=== PATIENT | male | born 1965 | race Caucasian/White ===

== ENCOUNTER → 2023-11-08 14:20 | Outpatient (REF) | payer OTHER, SELFPAY | LOC: RAD 14:20 | PROVIDERS: ATTENDING PHYSICIAN Internal Medicine | DX: I82.409 Acute embolism and thrombosis of unspecified deep veins of unspecified lower extremity (principal) | CPT/HCPCS: 93925 ==

== ENCOUNTER 2024-07-09 23:55 | Observation (INO) | payer OTHER, SELFPAY ==
[2024-07-09 20:01] VITALS: BMI 31.5
[2024-07-09 20:08] LABS: Glucose - Point of Care 154 mg/dl (70-99)
[2024-07-09 20:13] VITALS: BP 121/82
--- NOTE | 2024-07-09 20:13 | ED.GENMED ---
History of Present Illness
General
Chief Complaint: Change in Mental Status
Source: patient
Exam Limitations: none
Time Seen by Provider: 07/09/24 20:06
Nursing documentation reviewed up to this point in time: agreed with
History of Present Illness
History of Present Illness:
Patient presents to ED secondary to mental status change along with generalized weakness noted by nursing staff, shortly prior to arrival. Approximate 4 hours prior, patient was noted to have gone downstairs to receive his medications. Staff
alerted by patient himself shortly prior to arrival, requesting assistance due to weakness. When paramedics arrived at scene, patient appears to be somnolent but arousable, and slow to respond to any commands. No focal deficit noted. Upon
arrival, patient is found to be somnolent but arousable. Patient has no complaints, but remains slow to respond.
Past History
Past History
ED Past Medical History: Hypercholesterolemia, NIDDM, Seizures, Psychiatric (Schizophrenia, Depression) and Other (Organic Brain Syndrome, )
ED Past Surgical History: None
Social History
Tobacco: Smoker
Alcohol: None
Personal: Single
[facility]
Review of Systems
Review of Systems
Allergies reviewed?: Yes
Unable to obtain full review of systems at this time due to: due to acuity
All Other Systems: Not applicable
Phy Exam
Physical Exam
Physical Exam:
Physical Exam
General: mild distress, not acutely ill. afebrile
Head: nc/at. eomi
Neck: supple. normal range of motion.
Heart: s1/s2 regular rate and rhythm, no murmur. equal radial pulses.
Lungs: no acute respiratory distress. clear bilaterally
Abdomen: normal bowel sounds. not tender.
Neuro: somnolent but easily arousable. no focal neurological deficits
Skin: no rash
Extremities: no edema. no calf tenderness.
Course
Orders/Labs/Results
Orders:
Orders
07/09/24 20:07
Electrocardiogram (*1) Stat
Reason for Study: Other
Other Reason for Exam: neuro symptoms
CT Head W/o Iv Contrast Urgent
Comment:
Reason For Exam: mental status change
EKG- Treatment ONCE
07/09/24 20:11
Complete Blood Count/With Diff Urgent
Comprehensive Metabolic Panel Urgent
Troponin I Urgent
07/09/24 20:18
Add On- LAB Urgent
Tests Added?: valproic acid level
07/09/24 20:29
Arterial Blood Gas Urgent
%Oxygen/Room Air: 90
07/09/24 20:43
Depakane Urgent
07/09/24 22:01
Drug Screen, Urine [Urine Drug Abuse Screen] Urgent
Date Specimen was Collected: 07/09/24
Time Specimen was Collected: 22:00
Urinalysis Urgent
Date Specimen was Collected: 07/09/24
Time Specimen was Collected: 22:00
Urine Microscopic Urgent
Date Specimen was Collected: 07/09/24
Time Specimen was Collected: 22:00
07/09/24 22:55
Add On- LAB Urgent
Tests Added?: Urinalysis
07/09/24 23:30
COVID-19 Antigen Urgent
Source: Nasal Swab
Influenza A+B Rapid Molecular Urgent
TOMASZ Source: Nasal Swab
Specimen Description:
07/09/24 23:48
Admit/Transfer Patient As Directed
Co-Sign Provider:
Level of Care: Observation services
Assign to:: Telemetry
Physician / Group: saranya isaac
Diagnosis: Somnolence likely secondary to possible accidental medication ingestion
Reason for Telemetry: Arrhythmia
Date to Stop Telemetry: 07/12/24
Time to Stop Telemetry: 11:00
Reason for Hospitalization: Somnolence likely secondary to possible accidental medication ingestion
Code Status As Directed
Resuscitation Status: Full Code
07/09/24 23:54
PRN Pain Medication Management As Directed
May give lesser potent ordered pain med per pt: Yes
preference::
Protocol:: Medication orders for pain may be administered in a
manner that supports deferring to patient preference
when the pt is:
- Requesting an ordered lesser potent pain medication.
Least to most potent pain medications are defined
as: acetaminophen < NSAID < tramadol < opioids
(morphine, oxycodone, hydromorphone).
- Requesting a lesser dose of the same medication IF
ORDERED.
- Requesting a less intrusive route of administration
if both routes are prescribed by the provider (PO <
IV).
07/10/24 02:21
0.9% Sodium Chloride 1000 ml [Nss] 1,000 ml IV 80 mls/hr
Acetaminophen [Tylenol] 650 mg PO Q4H PRN
07/10/24 02:21
Activity As Directed
Activity Level: With Assistance
Intake/ Output As Directed
Frequency: Per unit guidelines
Neurological Checks As Directed
Frequency: q4h
Pneumatic Compression Sleeves As Directed
Type: Knee high
Vital Signs As Directed
Frequency: Per unit guidelines
Pulse Ox/spot Check [RESP] Routine
Quantity: 1
Ot Eval And Treat Routine
Pt Eval And Treat Routine
Activity Level: As Tolerated
DX Deep Vein Thrombosis Video Routine
07/10/24 Breakfast
1800 calorie (15 carb) Diabetic
Complete Blood Count/With Diff IN AM
Comprehensive Metabolic Panel IN AM
Magnesium IN AM
Multivitamin [Theragran] 1 tablet PO DAILY@0600
07/10/24 08:00
Atorvastatin [Lipitor] 40 mg PO DAILY
Cyanocobalamin [Vitamin B-12] 1,000 mcg PO DAILY
Docusate Sodium [Colace] 200 mg PO BID
Ferrous Sulfate [Feosol] 325 mg PO DAILY
Gemfibrozil [Lopid] 600 mg PO BID
METFORMIN HCl [Glucophage] 1,000 mg PO BID
Pantoprazole [Protonix] 40 mg PO DAILY
Propranolol [Inderal] 60 mg PO BID
07/10/24 22:00
Oxybutynin Chloride [Ditropan] 5 mg PO HS
clozapine 400 mg PO HS
07/12/24 11:00
DC Protocol for Telemetry ONCE
Abnormal Lab Results
07/09/24 07/09/24 07/09/24
20:06 20:11 20:29
RBC 4.37 L 10^6/uL
(4.70-6.10)
Hgb 12.8 L g/dL
(13.0-18.0)
Hct 37.6 L %
(39.0-52.0)
Immature Gran % 0.6 H %
(0-0.5)
Neutrophils % 40.0 L %
(42.2-75.2)
pO2 73 L mmHg
(83-108)
Glucose 156 H mg/dl
(70-99)
Urine Ketones
Urine Bacteria
Urine Albumin
Ur Tricyclics Screen
POC Glucose 154 H mg/dl
(70-99)
07/09/24
22:01
RBC
Hgb
Hct
Immature Gran %
Neutrophils %
pO2
Glucose
Urine Ketones 1+ A
(Negative)
Urine Bacteria Few A
(Negative)
Urine Albumin 2+ A
(Neg - Trace)
Ur Tricyclics Screen Positive H
(Negative)
POC Glucose
07/09/24 20:11
07/09/24 20:11
Vital Signs
Initial and Last Documented VS:
Initial Vital Signs
Pulse Resp Pulse Ox
88 11 97
07/09/24 20:08 07/09/24 20:08 07/09/24 20:08
Last Documented Vital Signs
Temp Pulse Resp BP Pulse Ox
98.7 F 95 14 109/74 93
07/09/24 20:13 07/10/24 02:30 07/10/24 02:00 07/10/24 02:00 07/10/24 02:30
MDM/Problems Addressed
MDM/Problems Addressed:
CT head: No acute findings.
Patient remains somnolent, but arousable and appropriate answering simple questions. Generalized weakness noted on exam, but nothing focal. Symptoms possibly medication effect versus postictal state, less likely CVA.
Patient will be admitted for further evaluation and treatment.
*EKG
Interpreted by ED Provider?: Yes
EKG Intrepretation Date: 07/09/24
Heart Rate: 84
Rate: normal
Rhythm: sinus
[place]: normal axis
Interval: normal interval
*Critical Care Note
Total Time (30-74mins, 75-104mins- exclusive of procedures): Not Applicable
ED Attending Note
-
Portions of this chart may have been created with voice recognition software.� Occasional wrong word or��sound alike� substitutions may have occurred due to the inherent limitations of voice recognition software.
Discharge Plan
Departure
Patient Disposition: Admit
Date of Disposition: 07/09/24
Time of Disposition: 21:36
Admit to: Telemetry
Presentation/result/management discussed w/ accepting MD/DO: Hospitalist
Discharge Problem:
Altered mental status
Interventions
Interventions:
ED- Neurological Assessment Last Done: 07/09/24 21:36
ED Swallowing Screen Last Done: 07/09/24 21:36
[2024-07-09 20:20] LABS: % Basophils 0.4 % (0-2); % Eosinophils 1.8 % (0-6); % Immature Granulocytes 0.6 % (0-0.5); % Monocytes 8.2 % (1.7-9.3); Absolute Eosinophils 0.1 10^3/uL (0-0.7); Absolute Lymphocytes 3.3 10^3/uL (1.2-3.4); Absolute Monocytes 0.6 10^3/uL (0.1-0.6); Absolute Neutrophils 2.7 10^3/uL (1.4-6.5); Hematocrit 37.6 % (39.0-52.0); Hemoglobin 12.8 g/dL (13.0-18.0); Mean Corpuscular Hgb 29.3 pg (27.0-31.0); Mean Platelet Volume 9.7 fL (7.4-10.4); Nucleated Red Blood Cells % 0 % (-); Platelet Count 228 10^3/uL (130-400); Red Blood Cell Count 4.37 10^6/uL (4.70-6.10); Red Cell Dist. Width 13.1 % (11.5-14.5); White Blood Cell Count 6.8 10^3/uL (4.8-10.8)
[2024-07-09 20:35] LABS: B.E. -0.2 mmol/L; HCO3 24.8 mmol/L (21-28); O2 Saturation % 96.6 % (94-98); PCO2 41 mmHg (35-48); PO2 73 mmHg (83-108); pH 7.39 (7.35-7.45)
[2024-07-09 20:39] LABS: ALT (SGPT) 12 U/L (0-50); AST (SGOT) 17 U/L (17-59); Albumin 4.4 g/dl (3.5-5.0); Alkaline Phosphatase 71 U/L (38-126); Blood Urea Nitrogen 16 mg/dl (9-20); Calcium 9.1 mg/dl (8.4-10.2); Carbon Dioxide 23 mmol/L (22-30); Chloride 101 mmol/L (98-107); Glucose 156 mg/dl (70-99); Potassium 4.5 mmol/L (3.5-5.1); Sodium 136 mmol/L (135-145); Total Bilirubin 0.6 mg/dl (0.2-1.3); Total Protein 6.6 g/dl (6.3-8.2); eGFR > 60.00
[2024-07-09 20:42] LABS: Troponin I < 0.012 ng/ml
[2024-07-09 21:09] LABS: Depakane 60.5 ug/ml (50.0-120.0)
[2024-07-09 21:11] VITALS: BP 107/71
[2024-07-09 22:00] VITALS: BP 134/87
[2024-07-09 22:21] LABS: Amphetamines Negative (Negative); Barbiturates Negative (Negative); Benzodiazepines Negative (Negative); Buprenorphine Negative (Negative); Cocaine Negative (Negative); Marijuana Negative (Negative); Methadone Negative (Negative); Methamphetamines Negative (Negative); Opiates Negative (Negative); Phencyclidine Negative (Negative); Tricyclic Antidepressants Positive (Negative)
--- NOTE | 2024-07-09 22:45 | HPS.HSE ---
Addendum entered and electronically signed by Catrina Griffiths DO 07/10/24 00:37:
The patient is seen and examined. See below HPI:
VSS, AF
The patient is somnolent, but arousable to voice and can follow commands, then goes back to sleep. No focal deficits
Lungs CTA b/l no w/r/r, CV RRR, No m/r/g, Abd soft, nt/nd
I have reviewed the patient with TELECOMMUNICATIONS OFFICER, Tammy, and agree with her history and physical, assessment and plan of care as per below.
Consider Neuro Cx in morning if no improvement in mentation.
Original Note:
Family Physician
-
Family Physician: EVANGELISTA SANCHEZ MD
Chief Complaint
-
Somnolent
History of Present Illness
59-year-old male from [facility] [place], where he lives there and assisted living it was reported he was normal before receiving all of his p.m. medications around 5:30 PM. He then called down to the nursing staff approximately 1 hour
later stating he was very tired. He currently is very somnolent, snoring he does wake up when name is called and does answer questions appropriately but has difficulty staying awake. His speech when awake is difficult to understand somewhat
mumbled however when asked to speak louder and slower I am able to understand him. He denies current headache, fever, chills, chest pain, palpitations, shortness of breath, cough, abdominal pain, nausea, vomiting, diarrhea, urinary symptoms. He
states he feels like when he had prior COVID. I spoke with patient Tapit Leslie who is known Joss for the last 9 years she states she was told by earlier Tapit the patient received all of his p.m. medications at 5:00-5:30 PM this evening
including his divalproex acid. He has been stable on his seizure medications for the last 9 years with no reported seizures at all. He stopped smoking 2 years ago is no longer on nicotine patch. I discussed with Tapit if the facility carries
Chacorta she states yes that they do. Joss's baseline is awake alert [place] x 3 normal speech shuffling wide stance gait very involved in activities and typically walks around after receiving his evening medications.
He has past medical history of HLD, DM2, seizures stable x 9 years, organic brain syndrome, schizophrenia, depression, iron deficiency, B12 deficiency, constipation, former smoker quit 2 years ago, chronic shuffling wide stance gait
Medical History
Past Medical History
Past Medical History: Reports Other
Additional Past Medical History:
Hyperlipidemia
Diabetes Mellitus, Type II
Essential Tremor
Organic Brain Syndrome
Schizophrenia
Seizure Disorder-stable in the last 9 years per [facility] with no seizures
iron deficiency
B12 deficiency
constipation
former smoker quit 2 years ago
chronic shuffling wide stance gait
Past Surgical History: Reports None and Other
Social History
Tobacco: Former Smoker (Quit approximately 2 years ago)
Alcohol: None
Drug: None
Personal: Single
Living: Assisted Living ()
Employment: Disabled
Family History
Family History: Not pertinent and Unable to Obtain
Allergies / Home Medications
Allergies reflects when Allergies were last updated in [facility].
Home Medications with original date entered in [facility]
Allergy/Medication List:
Allergies
Allergy/AdvReac Type Severity Reaction Status Date / Time
No Known Allergies Allergy Verified 07/09/24 20:17
Home Medications
divalproex 500 mg tablet,delayed release 500 mg PO DAILY Mental Health/Anxiety 10/19/10
acetaminophen 325 mg tablet 650 mg PO Q4H PRN mild pain/fever 06/08/22
clozapine 200 mg tablet 400 mg PO HS Mental Health/Anxiety 06/08/22
docusate sodium 100 mg capsule (Colace) 200 mg PO BID Constipation 06/08/22
gemfibrozil 600 mg tablet 600 mg PO BID High cholesterol 06/08/22
metformin 1,000 mg tablet 1,000 mg PO BID Diabetes 06/08/22
multivitamin 1 tab PO DAILY@0600 Supplement 06/08/22
nystatin 100,000 unit/gram topical powder 1 applic topical BID Skin issues 06/08/22
oxybutynin chloride 5 mg tablet 5 mg PO HS Urinary issue 06/08/22
propranolol 20 mg tablet 60 mg PO BID Blood pressure 06/08/22
cyanocobalamin (vitamin B-12) 1,000 mcg tablet 1,000 mcg PO DAILY #0 tabs 06/11/22
ferrous sulfate 325 mg (65 mg iron) tablet 325 mg PO DAILY #30 tabs 06/11/22
guaifenesin 600 mg tablet, extended release 12 hr (Mucinex) 600 mg PO Q12 #0 tabs 06/11/22
pantoprazole 40 mg tablet,delayed release 40 mg PO DAILY #0 tabs 06/11/22
atorvastatin 40 mg tablet 40 mg PO DAILY 07/09/24
divalproex 250 mg tablet,delayed release 750 mg PO HS 07/09/24
Review of Systems
-
History Source: [facility] ([facility])
A 12 point ROS was completed and negative except as noted: Yes
Constitutional: Reports Other (Somnolence/snoring 1 hour post evening meds given between 5/5:30 PM); Denies Fever
EENT: Denies Sore Throat or Runny Nose
Respiratory: Denies Cough or Trouble Breathing
Cardiac: Denies Chest Pain, Palpitations or Syncope
Abdomen/GI: Denies Abdominal Pain, Nausea, Vomiting, Diarrhea, Constipated, Bloody Stools or Black Stools
: Denies Dysuria, Frequency, Flank Pain, Incontinence, Difficulty Voiding or Urgency
Musculoskeletal: Denies Joint Pain or Edema
Skin: Denies Itching or Rash
Neurological: Denies Dizzy or Headache
Endocrine: Reports No Symptoms
Hematologic/Lymphatic: Reports No Symptoms
Psych: Reports Calm
Physical Exam
Vital Signs
Vital Signs
Temp Pulse Resp BP Pulse Ox
98.7 F 84 16 107/71 95
07/09/24 20:13 07/09/24 21:15 07/09/24 21:15 07/09/24 21:11 07/09/24 21:15
Physical Exam
General: Other (Somnolent but when awake is oriented x 3 falls asleep very quickly during exam); No Pain or Fever
HEENT: NormoCephalic, Anicteric, Moist mucous membranes, PERRLA and No Ptosis
Respiratory: Clear; No Wheezes, Rales or Rhonchi
Cardiac: S1/S2 and Regular Rhythm; No Murmur, Rub, Gallop or Peripheral Edema
Breast: Deferred by me
GI: Soft, Non Tender, Non Distended, Normal Bowel Sounds and No Hepatosplenomegaly
Rectal: Deferred by Provider
Genito-urinary: Deferred by me
Musculoskeletal: No Clubbing, No Cyanosis and No Edema
Skin: Warm and Dry; No Rash or Jaundice
Neuro: AO x 3 (Somnolent but when awake is oriented x 3 falls asleep very quickly during exam), No Motor Deficits (While in bed), No Sensory Deficits and Sedated (Patient's somnolent snoring but is arousable and oriented x 3); No Facial Droop or
Tremors
Psych: Calm
Laboratory Results
-
07/09/24 20:11
07/09/24 20:11
Laboratory Results
pH 7.39 (7.35-7.45) 07/09/24 20:29
pCO2 41 mmHg (35-48) 07/09/24 20:29
pO2 73 mmHg (83-108) L 07/09/24 20:29
HCO3 24.8 mmol/L (21-28) 07/09/24 20:29
Total Bilirubin 0.6 mg/dl (0.2-1.3) 07/09/24 20:11
AST 17 U/L (17-59) 07/09/24 20:11
ALT 12 U/L (0-50) 07/09/24 20:11
Alkaline Phosphatase 71 U/L (38-126) 07/09/24 20:11
Troponin I < 0.012 ng/ml 07/09/24 20:11
Data Reviewed
-
CT Scan: Report Reviewed by me
Lab Data: Labs Reviewed by me
Impression/Plan
-
Impression/plan:
Observation telemetry
#Acute somnolence concern for possible accidental ingestion wrong medication
-1 hour after receiving medications at snf noted to be extremely somnolent snoring quality was in his own room prior to this
-ABGs normal, urine drug screen positive tricyclics patient is on clozapine
-Observe for any seizure activity
ABGs normal
-Valproic acid level normal 60.5
-Neurochecks every 4 hours
-IV NSS at 80 cc/h
-PT/OT/case management assistant consult in a.m.
CT head: No acute intracranial abnormality. Mild atrophy
# Chronic seizure Disorder
Valproic acid level normal 60.5, spoke with patient hospice care consultant Leslie who has known the patient for 9 years with no reported seizures in the past 9 years he has been stable on his current drug regimen
-Patient received divalproex acid a.m. and p.m. dose at 5 PM this evening
-Continue divalproex sodium 500 mg in a.m., divalproex sodium 750 mg at dinner
-Seizure precautions
#Essential Tremor
-No appreciated tremors at current time
-Continue propranolol 60 mg twice daily
#Hyperlipidemia
-Continue atorvastatin 40 mg every afternoon, gemfibrozil 600mg bid
#Diabetes Mellitus, Type II
Accu-Cheks with SSI, check HgbA1c
-156
-cont metformin 1000 mg bid
#GERD
-Continue pantoprazole 40 mg daily
#Organic Brain Syndrome
#Schizophrenia Hx
-Patient on clozapine 400 mg at 7 PM
#Prior nicotine abuse
-Patient stopped smoking approximately 2 years ago per [facility] at [facility]
#Iron deficiency anemia
Continue ferrous sulfate 325 mg daily
Hgb stable 12.8, MCV 86
#Vitamin B12 deficiency
Continue B12 1000 mcg p.o. daily
Dvt proph
-SCD'S
Full code
[2024-07-09 23:00] VITALS: BP 122/71
[2024-07-09 23:02] LABS: Urine Albumin 2+ (Neg - Trace); Urine Bilirubin Negative (Negative); Urine Character Clear (Clear); Urine Color Yellow; Urine Glucose Negative (Negative); Urine Ketone 1+ (Negative); Urine Leukocyte Negative (Negative); Urine Nitrite Negative (Negative); Urine Occult Blood Negative (Negative); Urine Specific Gravity 1.015 (<1.030); Urine Urobilinogen Negative (Neg - 1+)
[2024-07-09 23:11] LABS: Urine Mucus Few
[2024-07-09 23:12] LABS: Urine Bacteria Few (Negative); Urine Red Blood Cell 0-2 /HPF (0-2); Urine White Cell 0-2 /HPF (0-5)
[2024-07-09 23:57] LABS: COVID-19 Antigen Negative (Negative)
[2024-07-10] VITALS (13 sets, daily range): BP systolic 106–156; BP diastolic 74–92; PULSE 102–108; O2SAT 96
[2024-07-10] MEDS: NSS 1000 IV (02:51)
[2024-07-10 06:05] LABS: % Basophils 0.3 % (0-2); % Eosinophils 0.1 % (0-6); % Immature Granulocytes 0.3 % (0-0.5); % Lymphocytes 38.5 % (20.5-51.1); % Monocytes 8.5 % (1.7-9.3); % Neutrophils 52.3 % (42.2-75.2); Absolute Lymphocytes 2.8 10^3/uL (1.2-3.4); Absolute Monocytes 0.6 10^3/uL (0.1-0.6); Absolute Neutrophils 3.7 10^3/uL (1.4-6.5); Hematocrit 36.4 % (39.0-52.0); Hemoglobin 12.3 g/dL (13.0-18.0); Mean Corp Hgb Conc. 33.8 g/dL (33.0-37.0); Mean Corpuscular Hgb 29.7 pg (27.0-31.0); Mean Corpuscular Volume 87.9 fL (80.0-94.0); Mean Platelet Volume 9.9 fL (7.4-10.4); Nucleated Red Blood Cells % 0 % (-); Platelet Count 218 10^3/uL (130-400); Red Blood Cell Count 4.14 10^6/uL (4.70-6.10); Red Cell Dist. Width 13.2 % (11.5-14.5); White Blood Cell Count 7.2 10^3/uL (4.8-10.8)
[2024-07-10 06:22] LABS: ALT (SGPT) 10 U/L (0-50); AST (SGOT) 13 U/L (17-59); Albumin 4.2 g/dl (3.5-5.0); Alkaline Phosphatase 74 U/L (38-126); Blood Urea Nitrogen 19 mg/dl (9-20); Calcium 8.5 mg/dl (8.4-10.2); Carbon Dioxide 25 mmol/L (22-30); Chloride 104 mmol/L (98-107); Estimated Creatinine Clearance > 125 ml/min; Glucose 143 mg/dl (70-99); Magnesium 1.8 mg/dl (1.6-2.3); Potassium 4.3 mmol/L (3.5-5.1); Sodium 140 mmol/L (135-145); Total Bilirubin 0.3 mg/dl (0.2-1.3); Total Protein 6.8 g/dl (6.3-8.2); eGFR > 60.00
[2024-07-10] MEDS: GLUCOPHAGE 1000 MG PO (08:36)
[2024-07-10] MEDS: LOPID 600 MG PO (08:36)
[2024-07-10] MEDS: VITAMIN B-12 1000 MCG PO (08:36)
[2024-07-10] MEDS: COLACE 200 MG PO (08:37)
[2024-07-10] MEDS: LIPITOR 40 MG PO ×2 (08:38)
[2024-07-10] MEDS: INDERAL 60 MG PO (08:38)
[2024-07-10] MEDS: FEOSOL 325 MG PO (08:38)
[2024-07-10] MEDS: THERAGRAN 1 TABLET PO (08:38)
[2024-07-10] MEDS: PROTONIX 40 MG PO (08:40)
--- NOTE | 2024-07-10 08:52 | W.PN.HOSP.TC ---
Today's Communication/Plan
-
Resume clozapine taper to home dose per pharmacy recommendations
Discharged back to assisted living facility
Assessment / Plan
Assessment / Plan
#Acute somnolence
UDS positive for tricyclic�patient on clozapine
Observe for seizure activity
ABG normal
Valproic acid normal
Continue neurochecks every 4
Continue IV fluids
PT OT pending
#Chronic seizure
Valproic acid level normal
Continue divalproex
Continue seizure precautions
#Essential tremor
Continue propranolol twice daily
#Hyperlipidemia
Continue statin
Continue gemfibrozil
#Diabetes mellitus type 2
Continue Accu-Cheks with SSI and hemoglobin A1c check
Continue metformin twice daily
#GERD
Continue pantoprazole
#Organic brain syndrome
#History of schizophrenia
Patient on clozapine 400 mg at 7 PM. Held yesterday
Patient will be given 200 mg of clozapine tonight, 300 mg tomorrow and back on home dose on
#Prior nicotine use
Patient stopped smoking 2 years ago, not on any nicotine supplementation
#Iron deficiency anemia
Hemoglobin stable continue to follow CBC
#B12 deficiency
Continue B12 1000 mg daily
DVT prophylaxis�SCDs
Full
Anticipated Discharge: 24 - 48 hours
Subjective/Interval History
-
Date of Service: July 10, 2024
59-year-old male who to [facility] somnolent, potentially secondary to being given the wrong medications at his assisted living facility. Today he reports feeling closer to baseline and has no acute reports overnight. Per pharmacy,
patient's clozapine has to be closely monitored.
Objective Data
-
Labs:
Laboratory Results
07/10/24
05:37
WBC 7.2
Hgb 12.3 L
Hct 36.4 L
Plt Count 218
Sodium 140
Potassium 4.3
Chloride 104
Carbon Dioxide 25
BUN 19
Creatinine 0.7
Glucose 143 H
Calcium 8.5
Total Bilirubin 0.3
AST 13 L
ALT 10
Alkaline Phosphatase 74
Vital Signs:
Vital Signs
Temp Pulse Resp BP Pulse Ox
98.4 F 102 20 121/77 95
07/10/24 08:23 07/10/24 08:23 07/10/24 08:23 07/10/24 08:38 07/10/24 08:23
Review of Systems
-
History Source: Patient
Constitutional: Reports No Symptoms
EENT: Reports No Symptoms Reported
Respiratory: Reports No Symptoms
Cardiac: Reports No Symptoms
Abdomen/GI: Reports No Symptoms
Genitourinary: Reports No Symptoms
Musculoskeletal: Reports No Symptoms
Skin: Reports No Symptoms
Physical Exam
-
General: Well Developed, Well Nourished, No Apparent Distress, Comfortable and Conversant
HEENT: Normocephalic and Atraumatic
Respiratory: Clear to Auscultation
Cardiac: Regular Rhythm and S1/S2
GI: Soft, Nontender, Nondistended and Normal Bowel Sounds
Musculoskeletal: No Clubbing and No Cyanosis
Skin: Warm and Dry
Neuro: AO x 3
Psych: Calm
Data Reviewed
-
Labs: Labs Reviewed by me and Discussed with Physician
Old Records: Reviewed
[2024-07-10 09:09] LABS: Glucose - Point of Care 144 mg/dl (70-99)
--- NOTE | 2024-07-10 09:49 | W.PN.UPDATE ---
Addendum entered and electronically signed by Evens Cuadra MD 07/10/24 12:28:
Total time spent on d/c = 33 min. This included today's physical exam, progress note, review of laboratory and diagnostic data, preparation of discharge documents and prescriptions, and discussions about the pt's hospital course and discharge plan
with the patient and other medical assistant cardiology involved in the patient's care.
Original Note:
Update Note
Progress Note Update
I saw and evaluated the patient. I reviewed the resident�s note and agree with findings and plan as documented in the resident�s note.
No new complaints.
Gen: NAD, AAOx3.
Eyes: EOMI, PERRLA, no scleral icterus.
Neck: supple.
CV: RRR, +S1/S2, no m/r/g.
Resp: CTAB, no rales, wheezes, or rhonchi.
Abd: +BS, soft, NT, ND
Skin: No rashes.
Neuro: CN 2-12 intact, non-focal.
Psych: Normal mood and affect.
CT head: No acute intracranial abnormality. Mild atrophy.
Acute somnolence (encephalopathy):
-CT brain above, unremarkable
-ABG/CMP/CBC/UDS unremarkable
-COVID/Flu NEG
-likely that pt was given an erroneously high dose of one or more of his medications (acute toxic encephalopathy)
Seizure Disorder :
-Depakote level normal at 60.5, no sz activity in 9 years
-cont Depakote
Other problems:
Essential Tremor: cont propranolol
Hyperlipidemia: cont statin/gemfibrozil
DM2: cont accuchecks/SSI/Metformin
GERD: cont PPI
Organic Brain Syndrome
Schizophrenia Hx: cont clozapine
Prior tobacco abuse d/o, quit 2 years ago
Iron deficiency anemia: cont ferrous sulfate
Vitamin B12 deficiency: cont B12
FULL/SCD
Pt's brother updated at bedside.
Medically cleared for discharge. Case management aware.
--- NOTE | 2024-07-10 11:20 | CM ---
Patient is medically ready for discharge back to [facility].
CM updated Marquise at [facility] with discharge. CM updated bedside RN.
--- NOTE | 2024-07-10 11:53 | W.DCSUMMARY ---
Discharge Summary
Discharge Data
Date of Admission: 07/09/24
Date of Discharge: 07/10/24
-
Pending Results: No
Hospital Course
Discharging Physician : Evens Cuadra MD
Disposition : [facility]
Primary care physician : EVANGELISTA SANCHEZ MD
Principal Discharge diagnosis : Acute Somnolence
Hospital Course : 59-year-old male with past medical history of hyperlipidemia, diabetes, seizures, organic brain syndrome, schizophrenia, depression, iron deficiency, B12 deficiency, constipation, former smoker, and chronic shuffling wide gait
presents from new [place] with acute somnolence after getting evening medications. At time of admission, there was concern of accidental ingestion of incorrect medications causing somnolence. In the ED, ABGs were normal, UDS was positive for
tricyclics (patient on clozapine), valproic acid was normal. IV fluids was initiated, neurochecks every 4 hours and PT OT was ordered. Home divalproex, propranolol, atorvastatin, gemfibrozil, metformin, pantoprazole, B12 was continued. Clozapine
was held last night and per pharmacy recommendations will be gradually increased to home dosage. Patient is to take 200 mg tonight, 300 mg tomorrow and resume home dosage of 400 mg at night daily starting 07/12. Patient stable for discharge.
#Acute somnolence
Now resolved
#Chronic seizure
Continue divalproex
#Essential tremor
Continue propranolol twice daily
#Hyperlipidemia
Continue statin
Continue gemfibrozil
#Diabetes mellitus type 2
Continue metformin twice daily
#GERD
Continue pantoprazole
#Organic brain syndrome
#History of schizophrenia
Patient on clozapine 400 mg at 7 PM. Held yesterday
Patient will be given 200 mg of clozapine tonight, 300 mg tomorrow and back on home dose on
#Prior nicotine use
Patient stopped smoking 2 years ago, not on any nicotine supplementation
#Iron deficiency anemia
Hemoglobin stable continue to follow CBC
#B12 deficiency
Continue B12 1000 mg daily
Important imaging findings :
Head CT 07/09:
FINDINGS:
There is mild ventricular sulcal prominence consistent with atrophy. Brain parenchyma is normal attenuation. There is no intra- or extra-axial mass, hemorrhage, or fluid collection. There is no midline shift nor mass effect. Visualized paranasal
sinuses are free of mucosal disease.
IMPRESSION:
No acute intracranial abnormality noted.
Discharge Plan
-
Patient Disposition: [facility]
Discharge Diagnosis/Procedures: acute somnolence
Condition: Fair
Diet: As tolerated
Activity: No restrictions
Driving Restrictions: As prior to admission
Bathing Restrictions: None
Referrals:
EVANGELISTA SANCHEZ MD [Family Provider] - in less than 1 week
Additional Discharge Medication Instructions: please increase taper of clozapine as follows: 07/10/24- 200 mg HS, 07/09/24- 300 mg HS, 07/12/24- 400 mg HS (original home dosing)
Prescriptions:
New
clozapine 100 mg Tablet
200 mg PO ONCE@2200 1 Days Qty: 2 0RF
clozapine 100 mg Tablet
300 mg PO ONCE@2200 1 Days Qty: 3 0RF
multivitamin Tablet
1 tab PO DAILY Qty: 60 2RF
Continued
divalproex 500 mg Tablet,Delayed Release (Dr/Ec)
500 mg PO DAILY
Patient Comments:
Pt. does not know the dosage
Rx Instructions:
500mg in AM, 750mg in PM
acetaminophen 325 mg Tablet
650 mg PO Q4HPRN PRN (Reason: mild pain/fever)
gemfibrozil 600 mg Tablet
600 mg PO BID
metformin 1,000 mg tablet
1,000 mg PO BID
docusate sodium [Colace] 100 mg Capsule
200 mg PO BID
nystatin 100,000 unit/gram Powder
1 applic TOPICAL BIDPRN PRN (Reason: rash)
Rx Instructions:
apply to groin
propranolol 20 mg Tablet
60 mg PO BID
oxybutynin chloride 5 mg tablet
5 mg PO HS
cyanocobalamin (vitamin B-12) 1,000 mcg Tablet
1,000 mcg PO DAILY Qty: 0 0RF
pantoprazole 40 mg Tablet,Delayed Release (Dr/Ec)
40 mg PO DAILY Qty: 0 0RF
ferrous sulfate 325 mg (65 mg iron) tablet
325 mg PO DAILY Qty: 30 0RF
atorvastatin 40 mg Tablet
40 mg PO HS
divalproex 250 mg Tablet,Delayed Release (Dr/Ec)
750 mg PO QPM
Patient Comments:
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
benzonatate 200 mg Capsule
200 mg PO Q8HPRN PRN (Reason: cough)
acetaminophen 500 mg tablet
1,000 mg PO DAILY
guaifenesin [Mucinex] 600 mg tablet extended release 12hr
600 mg PO BID
Held
clozapine 200 mg tablet
400 mg PO HS
Hold Instructions: Resume on 07/12/24.
Discharge Orders:
Discharge Patient (As Directed); Ordered 07/10/24
Ordered By: Clinton Harden
Discharge Date and Time
Print Language: PALAUAN
== END 2024-07-10 12:10 | disposition home or self-care (01) ==
LOC: ED 23:55
PROVIDERS: Clinical Nurse Specialist Family Health; ADMITTING PHYSICIAN Internal Medicine; ATTENDING PHYSICIAN Internal Medicine; EMERGENCY PHYSICIAN Emergency Medicine; FAMILY PHYSICIAN Internal Medicine
DX: R40.0 Somnolence (principal); R53.1 Weakness; E78.00 Pure hypercholesterolemia, unspecified; E11.9 Type 2 diabetes mellitus without complications; F20.9 Schizophrenia, unspecified; G40.909 Epilepsy, unspecified, not intractable, without status epilepticus; G31.9 Degenerative disease of nervous system, unspecified; K21.9 Gastro-esophageal reflux disease without esophagitis; D50.9 Iron deficiency anemia, unspecified; F09 Unspecified mental disorder due to known physiological condition; R29.818 Other symptoms and signs involving the nervous system; R06.83 Snoring; E53.8 Deficiency of other specified B group vitamins; F32.A Depression, unspecified; K59.00 Constipation, unspecified; G25.0 Essential tremor; Z86.16 Personal history of COVID-19; Z79.84 Long term (current) use of oral hypoglycemic drugs; Z87.891 Personal history of nicotine dependence; Z11.52 Encounter for screening for COVID-19
CPT/HCPCS: 70450; 80053; 80164; 80306; 81003; 81015; 82805; 82962; 83735; 84484; 85025; 87502; 87811; 93005; 97166; 99285; G0378